=== PATIENT | male | born 1975 | race Caucasian/White ===

== ENCOUNTER → 2022-01-21 15:53 | Outpatient (CLI) | payer BC, SELFPAY ==
--- NOTE | ~2022-01-21 | XR_ITS ---
XR ankle LT min 3V DATE: 01/21/2022 16:27 INDICATION: Left ankle sprain TECHNIQUE: 4 views COMPARISON: None FINDINGS: There is an oblique linear fracture at the tip of the lateral malleolus with minimal latera l displacement. There is overlying soft tissue swelling. There is a transverse medial malleolar fracture, possibly subacute or old, with suggestion of some co rtication along the fracture margins. The posterior malleolus is intact. The ankle mortise appears preserved. IMPRESSION: Recent fracture of the tip of the lateral malleolus with minimal lateral displacement, mo derate overlying soft tissue swelling Probably subacute or old medial malleolar fracture Reviewed, dictated and finalized at location A. IMPRESSION: Recent fracture of the tip of the lateral malleolus with minimal la teral displacement, moderate overlying soft tissue swelling Probably subacute or old medial malleolar fracture
--- NOTE | ~2022-01-21 | XR_ITS ---
XR knee RT min 4V DATE: 01/21/2022 16:27 INDICATION: Right knee pain TECHNIQUE: 4 views including sunrise and standing PA, AP and lateral views COMPARISON: None FINDINGS: No fracture or dislocation or joint effusion. No periosteal reaction or bone destruction, r adiopaque intra-articular loose body or chondrocalcinosis or joint space narrowing. IMPRESSION: Negative Reviewed, dictated and finalized at location A. IMPRESSION: Negative
== END ==
PROVIDERS: PCP Physician Assistant; Visit Provider Physician Assistant
DX: M25.561 Pain in right knee (principal); S93.402A Sprain of unspecified ligament of left ankle, initial encounter; X58.XXXA Exposure to other specified factors, initial encounter
CPT/HCPCS: 73564; 73610

== ENCOUNTER → 2022-01-28 16:53 | Outpatient (CLI) | payer BC, SELFPAY ==
--- NOTE | ~2022-01-28 | MR_ITS ---
EXAMINATION: MR ankle LT wo con DATE: 01/28/2022 17:35 INDICATION: Left ankle sprain TECHNIQUE: Magnetic resonance imaging (MRI) of the left ankle was performed without intravenous contr ast. Sequences included sagittal, coronal, and axial proton-density weighted fast spin echo without a nd with fat saturation. COMPARISON: None. FINDINGS: Medial ankle ligaments: There is thickening and loss of the normally well-defined delineated striated pattern of the deep del toid ligament consistent with partial tear. There is thickening of the anterior superficial deltoid l igament as well as the superomedial component of the spring ligament complex also consistent with par tial tears. There is mild surrounding soft tissue edema. There is mild edema along both sides of a ps eudoarticulation between a corticated ossicle along the anterior tip of the medial malleolus with con tour favoring a chronic nonunited avulsion fracture fragment over heterotopic ossification related to the ligament sprains. Lateral ankle ligaments: Minimally displaced more recent-appearing avulsion fracture at the tip of the lateral malleolus with associated marrow edema and surrounding soft tissue edema. The calcaneofibular and posterior talofibu lar ligaments are attached to the avulsed fragment remain normal. The anterior talofibular ligament a lso minimal attached to the avulsed fracture fragment appears thickened with amorphous increased sign al consistent with partial tear. The anterior inferior tibiofibular and posterior inferior tibiofibul ar ligaments are normal.. Tendons: Achilles tendon is normal. The peroneus longus and brevis tendons are normal. The tibialis anterior a nd extensor hallucis longus and extensor digitorum longus tendons are normal. The tibialis posterior, flexor digitorum longus and flexor hallucis longus tendons are normal. Small amount of fluid surroun ding the distal tibialis posterior tendon sheath consistent with mild tenosynovitis. Plantar fascia: Plantar aponeurosis is normal. Bones/other: No other fractures identified. Mild marrow edema at the medial neck of the talus along side the heter otopic ossicle, potentially chronic avulsion fractures at the tip of the medial malleolus. Bone marro w signal is otherwise unremarkable. Fluid: Minimal effusions at the ankle and subtalar joints. Couple small ganglion cysts along the lateral nec k the talus. Soft tissues and with mild subcutaneous edema about the ankle both medially and laterall y. IMPRESSION: 1. 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 T here is however some surrounding soft tissue edema in the ligament tears may be acute or acute on chr onic. 2. Acute to subacute minimally displaced ununited avulsion fracture at the tip of the lateral malleol us which include the footplates of the partially torn anterior talofibular and normal calcaneal fibul ar and posterior calcaneofibular ligaments. 3. Mild tenosynovitis along the normal tibialis posterior tendon. Reviewed, dictated and finalized at location A. IMPRESSION: 1. Peripheral tears of the deep and superficial deltoid ligaments and superomed ial component of the spring ligament complex with chronic nonunited avulsion fr acture at the tip of the medial malleolus. There is however some surrounding so ft tissue edema in the ligament tears may be acute or acute on chronic. 2. Acute to subacute minimally displaced ununited avulsion fracture at the tip of the lateral malleolus which include the footplates of the partially torn ant erior talofibular and normal calcaneal fibular and posterior calcaneofibul
== END ==
PROVIDERS: PCP Physician Assistant; Visit Provider Physician Assistant
DX: S93.402A Sprain of unspecified ligament of left ankle, initial encounter (principal); X58.XXXA Exposure to other specified factors, initial encounter; M25.561 Pain in right knee
CPT/HCPCS: 73721

== ENCOUNTER → 2022-02-07 09:21 | Outpatient (CLI) | payer BC, SELFPAY ==
--- NOTE | ~2022-02-07 | XR_ITS ---
XR ankle RT min 3V DATE: 02/07/2022 09:47 INDICATION: Displaced bimalleolar fracture contralateral ankle. Right ankle for comparison. TECHNIQUE: 4 views COMPARISON: 01/17/2022 left ankle FINDINGS: No fracture or dislocation of the ankle or disruption of the ankle mortise. No periosteal r eaction or bone destruction. IMPRESSION: No significant abnormality Reviewed, dictated and finalized at location A. IMPRESSION: No significant abnormality
== END ==
PROVIDERS: PCP Physician Assistant; Visit Provider Podiatrist Foot & Ankle Surgery
DX: S82.841A Displaced bimalleolar fracture of right lower leg, initial encounter for closed fracture (principal); X58.XXXA Exposure to other specified factors, initial encounter
CPT/HCPCS: 73610

== ENCOUNTER 2022-05-12 03:17 | Day surgery (SDC) | payer BC, SELFPAY ==
[2022-05-03 11:27] VITALS: BMI 30.1
--- NOTE | 2022-05-03 11:35 | PC.NURSE ---
Report to the Outpatient Waiting Room, entrance under the green pavilion located off [facility], at time 0700 on date 05/12/22. OR Time: 0900. Time changes happen often and if your time is changed the preop area will call you the afternoon before. - You and your visitor will be asked to self-screen and do not enter if you have any COVID symptoms. - Only one visitor and NO children visitors are allowed at this time. - The patient visitor is requested to leave or wait in car when not with patient due to restrictions. - A mask is required within the hospital. Patients may have clear liquids (water, carbonated beverages, clear teas, apple juice) until 3 hours prior to surgery with a maximum of 20 ounces. - No food from midnight until time of surgery Take the following medications with a SIP of water the morning of surgery: TYLENOL IF NEEDED Medications to discontinue per physician: VITAMINS/SUPPLEMENTS Date to take last dose: 05/08/22 Please no make-up, nail zimbabwean, hairspray, perfume, deodorant, or body powder the day of surgery. No jewelry (including any body piercings) or valuables the day of surgery, leave them at home. Please take a shower or bath the night before, or the morning of, surgery with an antibacterial soap. Wear comfortable, loose fitting clothing. - Jewelry must be removed prior to entering the operating room. Rings and piercings that are not removed may be cut off. - The hospital will not accept responsibility for valuables. - Please leave all valuables, including medications, at home the day of surgery. If you are going home after surgery, a licensed dump truck driver must drive you home. - NO public transportation without another adult. - We recommend that an adult stay with you for 24 hours following discharge. - We also recommend that you do not drive, make important decision, drink alcoholic beverages, or take any drugs that were not prescribed by your health care provider for at least 24 hours after your discharge time. Follow any additional instructions given to you from your surgeon. If you or anyone in your household have experienced Covid symptoms in the past week, please notify your surgeon or the nurse liaison at the phone number below for possible testing. Telephone instructions given to PT - BONNIE DAVIS and asked if any additional questions and then verbalized understanding. Patient advised to call surgeon office or pre surgery nurse liaison [phone] if any additional questions.
--- NOTE | ~2022-05-12 | XR_ITS ---
EXAMINATION: XR surgery orthopedic DATE: 05/12/2022 11:53 INDICATION: Left ankle ligament reconstruction TECHNIQUE: 3 fluoroscopic images of the left ankle were obtained during procedure performed by Dr. Shane osborne. Radiologist was not present for the imaging or procedure. The amount of fluoroscopy time used during this procedure was 0.5 minutes. COMPARISON: None. FINDINGS: Again seen are minimally displaced chronic nonunited avulsion fractures at the distal tips at the med ial and lateral malleoli. Otherwise normal alignment. No new fractures identified. Mild tibiotalar os teoarthritis with mild anterior predominant nonuniform joint space narrowing. Remaining joint spaces are relatively preserved. IMPRESSION: 1. Unchanged minimally displaced chronic nonunited avulsion fractures at the tips of the medial later al malleoli. Reviewed, dictated and finalized at location B. IMPRESSION: 1. Unchanged minimally displaced chronic nonunited avulsion fractures at the ti ps of the medial lateral malleoli.
[2022-05-12 07:00] VITALS: BP 132/81; PULSE 65; RESP 16; TEMP 36; O2SAT 99
--- NOTE | 2022-05-12 07:05 | WPDHPUPDATE1 ---
History and Physical Update Update Date/Time: 05/12/22 07:05 History and Physical has been reviewed, including an updated exam of the patient. There are NO changes in the patient's condition. Risks, benefits, and alternatives have been discussed and questions answered. Patient agrees to proceed with procedure.
[2022-05-12] MEDS: ACETAMINOPHEN 500 MG TABLET 1000 MG PO (07:25)
[2022-05-12] MEDS: LACTATED RINGERS 1,000 ML 30 ML IV CONT ×2 (07:34→12:22)
[2022-05-12] MEDS: KETOROLAC 15 MG/ML VIAL (*BKC) IV PUSH (07:36)
--- NOTE | 2022-05-12 07:39 | SUR.PREOP ---
pt states knows how to use crutches,ordered crutches for discharge.
--- NOTE | 2022-05-12 07:59 | WPDANESEPPF ---
Anes - Initial Pre Proc Eval Procedure: Operation Date: 05/12/22 09:00 Proposed Procedures p Left Ankle Medial and Lateral Ligament Reconstruction - Quincy Mclean MD Date/Time: 05/12/22 07:59 Surgeon: Quincy Mclean MD Pre Op Diagnosis: Lt Ankle Instability Patient Data Age: 46 Gender: M Height: 1.78 m Weight: 99.45 kg Last Vital Signs Temp 36.0 C L 05/12/22 07:00 Pulse 65 05/12/22 07:00 Resp 16 05/12/22 07:00 BP 132/81 05/12/22 07:00 Pulse Ox 99 05/12/22 07:00 O2 Del Method Room Air 05/12/22 07:00 Allergies Allergy/AdvReac Type Severity Reaction Status Date / Time No Known Allergies Allergy Verified 05/12/22 07:21 Home Medications Medication Instructions Recorded Confirmed Type acetaminophen 500 mg tablet 500 mg PO QID PRN Pain 05/03/22 05/12/22 History multivitamin 1 tablet PO DAILY 05/03/22 05/12/22 History Patient hx anesthesia problems: none Family hx anesthesia problems: none Results Review: All pre-operative results and documents have been reviewed as part of the pre-operative evaluation. 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 Informed Consent: The patient's anesthetic plan and its attendant risks and benefits were discussed with the patient/family/POA. Questions were solicited and answers provided to the satisfaction of the patient/family/POA.
--- NOTE | 2022-05-12 09:31 | WPDANESPNB ---
Anes - Peripheral Nerve Block Date/Time: 05/12/22 09:31 I have discussed with the patient/family/POA the placement of a peripheral nerve block for post-operative pain management, including associated risks, benefits, complications, and side effects. Alternative methods of post-operative analgesia were detailed. Questions were solicited and answers provided to the satisfaction of the patient/family/POA. Time-Out: A pre-procedural Time-Out was completed immediately before starting the procedure and confirmed: Patient Identification, Site, Procedure, Patient Position and the Availability of Requisite Equipment. Clinical Indications: Acute post-operative pain management requested by the operative surgeon. Nerve Block Insertion Note Anes-nerve block: posterior fossa sciatic left Patient position: supine Skin prep: chlorhexidine Needle: 22 gauge, stimulating, insulated echogenic needle. Needle length: 80 mm Technique: nerve stimulation lost at (mA) (0.3) Injectate: bupivacaine 0.5% with epi 5 mcg/ml (no epi, 30cc) and dexamethasone (mg) (8) Observations: tolerated well Complications: none Procedure start time:: 921 Procedure end time:: 927
[2022-05-12] MEDS: ceFAZolin 2 GM/D5W 50 ML 2 GM/50 ML BAG IVPB (09:36)
[2022-05-12] MEDS: BUPIVACAINE HCL 0.5% PF 30 ML VIAL 10 ML INFILTRATE (10:21)
[2022-05-12 12:22] VITALS: BP 126/79; PULSE 72; RESP 16; TEMP 36.3; O2SAT 96
[2022-05-12 12:37] VITALS: BP 128/85; PULSE 90; RESP 17; O2SAT 97
--- NOTE | 2022-05-12 12:44 | W.PM.PROC2 ---
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 Pain with activity. Unrelieved with therapy, bracing and anti-inflammatories. Presents for operative treatment. Findings Medial malleolar fracture avulsion with deep deltoid ligament attachment. Lateral malleolus avulsion fracture healed with laxity of the anterior talofibular ligament. Description of Procedure Patient identified in the preoperative holding. Informed consent given. Operative extremity marked. Patient received intravenous antibiotics. Patient brought to the operating room where he underwent general anesthetic by anesthesia team. Positioned supine on operating room table. Time-out performed confirming the patient, site of the surgery and the plan. Left lower extremity prepped draped usual sterile surgical fashion using a ChloraPrep skin solution. Foot and ankle exsanguinated and a thigh tourniquet inflated to 250 mmHg. Curvilinear incision over the anterolateral ankle and distal fibula made with 15 blade knife. Hemostasis controlled electrocautery. Dissection carried down to the fascia which was incised in line with skin incision. Careful dissection to isolate the nerve elements and protect these during the case. Anterior talofibular and calcaneofibular ligaments identified. These were noted to be unstable. previous avulsion fracture from the distal fibula with partial healing and no attachment to the ligaments. Avulsion fragments removed with a rongeur. Ligaments were then sharply elevated off of the distal fibula. Distal fibula prepared with a rongeur. Rongeur used to remove a small bone spur from the anterolateral talus. Thorough irrigation of the ankle joint and distal fibula. Repair of the ligament then performed. Two fiber tack anchors placed in the distal fibula and passed through the anterior talofibular and calcaneal fibular ligaments. After this repair internal brace was performed. Talar neck anchor point was prepared. Guide pin placed in the talar neck and verified with image intensification. All Purpose Clerk hole placed using a 3.5 mm drill. Hole was tapped and the SwiveLock anchor was placed. With the ankle in neutral the internal brace was then attached to the fibula with the 2nd PushLock anchor. Thorough irrigation done of the Lateral ligament complex. Peroneal tendons inspected and noted to be intact. Extensor retinaculum then brought laterally and repaired to the distal fibula with 0 Vicryl interrupted suture. Fascia repaired with 2 0 Vicryl suture, subcutaneous tissue repaired with 3 0 Monocryl interrupted and running 4 0 nylon. medial side then addressed. Longitudinal incision made from the medial malleolus distally. Fascia incised in line with skin incision. Avulsion fracture from the distal medial malleolus noted with the deep deltoid attached. Bone was prepared with rongeur and curettes. The medial ankle joint was able to be inspected. There was a small chondral injury from the talus which was sharply removed. Ankle joint irrigated with solution and suctioned. Repair was then performed with 3.0 mm SwiveLock anchor with suture tape placed into the medial malleolar bed and passed through the avulsion fragment. This was then secured. Good fixation noted. Image intensification confirmed reduction and alignment of the ankle mortise. Wound thoroughly irrigated. Rest of the deltoid and medial fascia were repaired with 0 Vicryl interrupted suture. Subcutaneous tissue repaired with 2 Vicryl and 3 Monocryl interrupted suture and skin repaired with 4 nylon running suture. Sterile dressing placed. Tourniquet released. B
[2022-05-12 12:50] VITALS: BP 142/99; PULSE 74; RESP 12; O2SAT 93
[2022-05-12 13:00] VITALS: BP 144/85; PULSE 73; RESP 16
[2022-05-12 13:30] VITALS: BP 145/87; PULSE 68; RESP 16
== END 2022-05-12 13:46 | disposition home or self-care (01) ==
PROVIDERS: PCP Physician Assistant; Visit Provider Orthopaedic Surgery
PROC: (CPT 27698; principal; 2022-05-12 09:00)
DX: M25.372 Other instability, left ankle (principal); S82.842D Displaced bimalleolar fracture of left lower leg, subsequent encounter for closed fracture with routine healing; X50.0XXD Overexertion from strenuous movement or load, subsequent encounter; G89.18 Other acute postprocedural pain
CPT/HCPCS: 27698; 64445; 99199; A9270; C1713; J0690; J1100; J1170; J1885; J2250; J2405; J2704; J3010; J7120

== ENCOUNTER 2024-03-25 09:19 | Emergency (ER) | payer OTHER, SELFPAY ==
--- NOTE | ~2024-03-25 | CT_ITS ---
Non-contrast Head CT History: Status post fall Technique: Axial non-contrast imaging of the brain was performed. Dose reduction technique was used on this scan by utilizing automated exposure control and iterative reconstruction technique. The dose -length product (DLP) was 605.33 mGy-cm. Findings: There is no evidence of intracranial hemorrhage, mass lesion, or acute infarct. Brain par enchyma appears normal. The ventricles and subarachnoid spaces are normal in size. The calvarium ap pears normal. The visualized paranasal sinuses and mastoid air cells are clear. Impression: No significant abnormality seen. Reviewed, dictated and finalized at location . Impression: No significant abnormality seen.
--- NOTE | ~2024-03-25 | CT_ITS ---
CT Facial Bones and Cervical Spine Clinical Indication: Status post fall Technique: Contiguous axial scans were obtained through the facial bones and cervical spine followed by coronal and sagittal reconstructions. Dose reduction technique was used on this scan by utilizing automated exposure control and iterative reconstruction technique. The dose-length product (DLP) was 584.22 mGy-cm. Findings: CT facial bones: There are probable acute bilateral nasal bone fractures. No other fracture identifie d. There are bilateral maxillary sinus retention cysts or polyps. The remaining visualized paranasal sinuses are clear. Intraorbital soft tissues appear normal. CT cervical spine: No fractures or subluxation. Unremarkable visualized bony structures. The interv ertebral disc spaces are preserved. No prevertebral soft tissue swelling. Impression: Acute bilateral nasal bone fractures. No fracture or subluxation of the cervical spine. Reviewed, dictated and finalized at [facility]. Impression: Acute bilateral nasal bone fractures. No fracture or subluxation of the cervical spine.
[2024-03-25 09:22] VITALS: BP 162/64; PULSE 77; RESP 15; TEMP 36.8; O2SAT 99
--- NOTE | 2024-03-25 11:08 | ED.FALL ---
HPI - Fall General Chief Complaint: Fall Stated Complaint: fall on monday, landed on face Time Seen by Provider: 03/25/24 11:01 Source: patient Mode of arrival: ambulatory Limitations: no limitations History of Present Illness HPI Narrative: Patient is a 48 y/o male who presents to the ED with c/o fall. Patient reports he was helping his who had fallen in the bathroom in the middle of the night on Monday. He was bending over attempting to help her off the ground when he fell forward and hit his face on the ground. He is unsure if he lost consciousness or passed out. He thinks he was only partially awake when this occurred as he notes it was the middle of the night. He sustained injury to his nose and lip. Reported having bleeding from his nose initially after the accident. Denies epistaxis since. Denies dizziness or lightheadedness since the accident. Denies vision changes, malocclusion. Denies CP or SOB. Patient notes he ran 4 miles this morning prior to arrival. Related Data Home Medications Medication Instructions Recorded Confirmed acetaminophen 500 mg tablet 500 mg PO QID PRN Pain 05/03/22 07/20/22 multivitamin 1 tablet PO DAILY 05/03/22 07/20/22 Allergies Allergy/AdvReac Type Severity Reaction Status Date / Time No Known Allergies Allergy Verified 03/25/24 09:27 Review of Systems Review of Systems: All systems reviewed & are unremarkable except as noted in HPI. All systems reviewed & are unremarkable except as noted in HPI and below PMFSH Past Medical History Medical History Bimalleolar avulsion fracture of left ankle Encounter for postoperative care Left ankle instability Olecranon bursitis, right elbow Weight gain Surgical History Surgical History H/O sinus surgery 1994 Family History Family History Other Asthma Hypertension Social History Social History Smoking status: Former smoker Tobacco type: cigars Additional smoking assessment comments: RARE CIGAR YRS AGO Alcohol intake: current Drinks per week: 2 Substance use: never Substance use type: does not use Living arrangements: with family Occupation/Education: occupation 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 HEAD: Normocephalic, atraumatic. EYES: PERRL/EOMI, conjunctiva clear. Mild lisa periorbital yellow/purple ecchymosis inferiorly. ENT: Slight rightward deviation of nasal bones with mild swelling noted. TTP over bridge of nose. No active epistaxis. No septal hematoma. TMs are clear bilaterally. No hemotympanum. Small contusion to abrasion to L lower lip with mild swelling. No through and through injury. No malocclusion or trismus. NECK: Neck supple, full ROM, no midline tenderness. RESPIRATORY: Airway patent, respirations nonlabored. Clear to auscultation bilaterally, no rales, rhonchi, wheezing. CARDIOVASCULAR: Regular rate and rhythm MUSCULOSKELETAL: Moves all extremities. No gross deformities. SKIN: Warm, dry, normal color. NEURO: A&O X3. Speech clear. No focal deficits. PSYCHIATRIC: Appropriate mood and affect. Normal interaction. Course Vital Signs Vital signs: Vital Signs Temperature 98.2 F 03/25/24 09:22 Pulse Rate 77 03/25/24 09:22 Respiratory Rate 15 03/25/24 09:22 Blood Pressure 162/64 H 03/25/24 09:22 Pulse Oximetry 99 03/25/24 09:22 Oxygen Delivery Room Air 03/25/24 09:22 Temperature 98.2 F 03/25/24 09:22 Pulse Rate 77 03/25/24 09:22 Respiratory Rate 15 03/25/24 09:22 Blood Pressure 162/64 H 03/25/24 09:22 Pulse Oximetry 99 03/25/24 09:22 Oxygen Delivery R
[2024-03-25] MEDS: TETANUS,DIPHTHERIA,AC PERTUSSIS ADULT (0.5 ML) BOOSTRIX IM (11:29)
== END 2024-03-25 11:47 | disposition home or self-care (01) ==
PROVIDERS: Emergency Provider Physician Assistant; PCP Physician Assistant
DX: S02.2XXA Fracture of nasal bones, initial encounter for closed fracture (principal); W18.30XA Fall on same level, unspecified, initial encounter; Z23 Encounter for immunization
CPT/HCPCS: 70450; 70486; 72125; 90471; 90715; 99284